=== PATIENT | male | born 1985 | race Caucasian/White ===

== ENCOUNTER 2017-11-12 10:24 | Outpatient (CLI) | payer OTHER ==
--- NOTE | 2018-03-26 23:07 | HP ---
HISTORY OF PRESENT ILLNESS: Paramjit Hughes is a 32-year-old male who works in sales at [employer] . He has had muscle aches throughout his body for 4-5 years. He has had elevated liver function glendy ts and CKs, has been referred by Dr. Ajay An for muscle biopsy. ALLERGIES: None. TOBACCO: Vapes. ALCOHOL: Occasionally. PAST SURGICAL AND MEDICAL HISTORY: Noncontributory except for hypertension. REVIEW OF SYSTEMS: [place] noncontributory. PHYSICAL EXAMINATION: VITAL SIGNS: 145/102, 80, 97.9 degrees, pounds, 72 inches. HEENT: Unremarkable. LUNGS: Clear to auscultation. CARDIAC: Regular rate and rhythm without murmur, rub or gallop. ABDOMEN: Soft, nontender, no masses. EXTREMITIES: Unremarkable, tender muscles groups. ASSESSMENT AND PLAN: Myalgias, abnormal laboratories. Plan muscle biopsy morning other than F riday in the morning with specimen to allow specimen special care and send out. Risks and benefits e xplained. He consents.
== END 2017-11-12 10:25 | disposition home or self-care (01) ==
LOC: BICULT 10:24
PROVIDERS: ATTEND Internal Medicine Gastroenterology
DX: R94.5 Abnormal results of liver function studies (principal); M79.1 Myalgia; K76.0 Fatty (change of) liver, not elsewhere classified
CPT/HCPCS: 76705

== ENCOUNTER 2018-04-27 06:53 | Day surgery (SDC) | payer OTHER ==
[2018-04-24 17:01] VITALS: BMI 32.5
[2018-04-27] MEDS ORDERED: Ketorolac Tromethamine 30 MG/ML VIAL ONE (07:33)
[2018-04-27] MEDS ORDERED: Bupivacaine HCl 0.5%/Epinephrine 1:200,000/PF 30 ml Vial ONE (08:25)
[2018-04-27] MEDS ORDERED: Fentanyl 100 MCG/2 ML VIAL ONE (08:45)
[2018-04-27] MEDS ORDERED: Ketamine 50 MG/ML (10ML VIAL) ONE (09:06)
[2018-04-27] MEDS ORDERED: Midazolam HCl 2 mg/2 ml Vial ONE (09:06)
[2018-04-27] MEDS ORDERED: Propofol 1,000 MG/100 ML VIAL IV ONE (09:41)
[2018-04-27] MEDS ORDERED: PROPOFOL 40 ML ONE (09:41)
[2018-04-27] MEDS ORDERED: PROPOFOL 200 MG/20 ML VIAL ONE (13:44)
--- NOTE | 2018-04-28 13:05 | OP ---
DATE OF PROCEDURE: 04/27/2018 PREOPERATIVE DIAGNOSIS: Myalgias, muscle biopsy requested. POSTOPERATIVE DIAGNOSIS: Myalgias, muscle biopsy requested. PROCEDURE PERFORMED: Right quadriceps deep muscle biopsy, lateral. ANESTHESIA: General. DESCRIPTION OF PROCEDURE: The patient was taken to the operating room where under general anesthesia, incision was made in the right thigh and carried down through the skin and subcutaneous tissue. Deep fascia and segment of the quadriceps excised, placed in saline solution, and submitted to Pathology for immediate processing and transported for muscle biopsy. Subcutaneous tissues were approximated with 3-0 Monocryl, skin with subdermal 4-0 Monocryl and [place] glue applied. The patient tolerated the procedure well. Job ID: [id number]
--- NOTE | 2018-05-03 21:08 | EKG ---
Test Reason : PREOP Blood Pressure : / mmHG Vent. Rate : 081 BPM Atrial Rate : 081 BPM P-R Int : 148 ms QRS Dur : 088 ms QT Int : 398 ms P-R-T Axes : 036 005 -01 degrees QTc Int : 462 ms Normal sinus rhythm Inferior infarct , age undetermined Abnormal ECG No previous ECGs available Confirmed by ELIGIO GASCA (2) on 05/03/2018 9:07:41 PM Referred By: GUY Confirmed By:ELIGIO GASCA
== END 2018-04-27 10:49 | disposition home or self-care (01) ==
LOC: SDC 06:53
PROVIDERS: ATTEND Specialist
PROC: 0KBQ0ZX Excision of Right Upper Leg Muscle, Open Approach, Diagnostic (ICD-10-PCS; principal; 2018-04-27)
DX: M79.10 Myalgia, unspecified site (principal)
CPT/HCPCS: 88305; 93005; 93010; J0131; J0670; J1885; J2250; J2704; J3010

== ENCOUNTER 2019-06-07 13:21 | Outpatient (CLI) | payer OTHER ==
--- NOTE | 2019-06-07 13:54 | RAD ---
EXAM: 3 views of the right ankle HISTORY: Ankle pain COMPARISON: None FINDINGS: 3 views of the right ankle shows no evidence of acute fracture or dislocation. No soft tiss ue swelling is seen. No degenerative changes are present. IMPRESSION: No evidence of acute osseous abnormality.
== END 2019-06-07 13:22 | disposition home or self-care (01) ==
LOC: BICRAD 13:21
PROVIDERS: ATTEND Family Medicine
DX: S96.911A Strain of unspecified muscle and tendon at ankle and foot level, right foot, initial encounter (principal)

== ENCOUNTER 2019-11-12 17:30 | Outpatient (CLI) | payer OTHER | END 2019-11-12 17:31 | disposition home or self-care (01) | LOC: SLEEPLAB 17:30 | PROVIDERS: ATTEND Family Medicine | DX: G47.33 Obstructive sleep apnea (adult) (pediatric) (principal); R53.83 Other fatigue; E66.9 Obesity, unspecified; R06.83 Snoring; F41.9 Anxiety disorder, unspecified; I10 Essential (primary) hypertension; R40.0 Somnolence; R09.89 Other specified symptoms and signs involving the circulatory and respiratory systems; G31.84 Mild cognitive impairment of uncertain or unknown etiology; Z68.35 Body mass index [BMI] 35.0-35.9, adult | CPT/HCPCS: 95801 ==